=== PATIENT | female | born 1990 | race Caucasian/White ===

== ENCOUNTER 2018-12-05 10:59 | Observation (INO) ==
[2018-12-05 02:05] LABS: Bilirubin,Urine Small (Negative); Blood,Urine Small (Negative); Color,Urine Dark Yellow (Yellow); Glucose,Urine (UA) Normal (Normal); Ketones,Urine 40 mg/dL (Negative); Leukocyte Esterase,Urine Moderate (Negative); Nitrite,Urine Negative (Negative); Protein,Urine 100 mg/dL (Neg-Trace); Specific Gravity,Urine 1.029 (1.010-1.025); Urobilinogen,Urine Normal (Normal)
[2018-12-05 02:07] LABS: Bacteria,Urine Many per hpf (None-Few); Hyaline Casts,Urine Few per lpf (None-Few); Squamous Epithelial Cell,Urine Many per lpf (None-Few); WBC,Urine 50-100 per hpf (0-3)
[2018-12-05 02:10] LABS: Clarity,Urine Hazy (Clear)
[2018-12-05 02:15] LABS: Amphetamine Screen,Urine Negative ng/mL (Cutoff=1000); Barbiturate Screen,Urine Negative ng/mL (Cutoff=200); Benzodiazepines Screen,Urine Negative ng/mL (Cutoff=200); Cannabinoid Screen,Urine Negative ng/mL (Cutoff = 50); Cocaine Screen,Urine Negative ng/mL (Cutoff= 300); Opiate Screen,Urine Negative ng/mL (Cutoff=300); Phencyclidine Screen,Urine Negative ng/mL (Cutoff=25)
[2018-12-05 02:23] LABS: RBC,Urine 0-3 per hpf (0-3); Uric Acid Crystals,Urine Present
[2018-12-05 02:32] LABS: Basophils % 0.1 %; Eosinophils % 0.3 %; Hemoglobin 11.1 g/dL (11.5-15.4); Immature Granulocytes % 0.5 % (0-4); Lymphocytes # 1.2 K/mcL (0.6-4.6); Lymphocytes % 8.2 %; Mean Corpuscular HGB Conc 34.7 g/dL (31.6-35.5); Mean Corpuscular Hemoglobin 30.7 pg (28.0-33.3); Mean Corpuscular Volume 88.4 fL (83.0-100.0); Mean Platelet Volume 11.8 fL (9.4-12.4); Monocytes # 1.5 K/mcL (0.0-1.3); Monocytes % 10.6 %; Neutrophils # 11.5 K/mcL (1.6-8.9); Platelet Count 215 K/mcL (140-400); Red Blood Count 3.62 M/mcL (3.82-4.97); Red Cell Distribution Width 12.1 % (11.5-14.5); Segmented Neutrophils % 80.3 %; White Blood Count 14.3 K/mcL (4.3-11.1)
--- NOTE | 2018-12-05 02:37 | OB/GYN Progress Note ---
Date of Encounter: 12/05/18 Time of Encounter: 02:21 - Assessment and Plan (1) 29 weeks gestation of Current Visit: Yes Status: Acute (2) Nausea and vomiting during Current Visit: Yes Status: Acute LR bolus of 1 L given, then 1L at 250ml/hr hour then continue infusion at 125/hour IV Zofran and IV Phenergan given (3) Pyelonephritis affecting in third trimester Current Visit: Yes Status: Acute Discuss plan of care with Dr. Slade Callahan for observation Rocephin IV every 24 hours Ancef 1 g every 6 hours starting 6 hours after Rocephin Subjective - Subjective Interval history: 29+0 weeks gestation presents to triage with complaints of nausea and vomiting, abdominal and back pain and discomfort. Patient states since Thursday she is had nausea and vomiting, the last time she was able to keep anything down was on Thursday. Complains of dysuria and "feels like she has a UTI", since Thursday or Thursday. Patient reports good movement, denies vaginal bleeding or leaking of fluid. Patient does have fair stamp on hand Antepartum ROS: movement normal, other, no loss of fluid, no vaginal bleeding, no contractions Objective - Vital Signs Vital Signs: Intake and Output 12/04/18 12/04/18 12/05/18 15:59 23:59 07:59 Other: Weight 80.739 kg Patient Weight 12/05/18 23:59 Weight 80.739 kg - Exam FHR: auscultation normal FHR comments: Baseline 155 Abdomen: Present: soft, gravid Cervical dilation: Fingertip/thick/high per RN Comments: Right CVA tenderness - Labs Labs: Abnormal lab results Urine Clarity Hazy (Clear) A 12/05/18 01:55 Ur Specific [place] 1.029 (1.010-1.025) H 12/05/18 01:55 Urine Protein 100 mg/dL (Neg-Trace) H 12/05/18 01:55 Urine Ketones 40 mg/dL (Negative) H 12/05/18 01:55 Urine Blood Small (Negative) H 12/05/18 01:55 Urine Bilirubin Small (Negative) H 12/05/18 01:55 Ur Leukocyte Esterase Moderate (Negative) H 12/05/18 01:55
--- NOTE | 2018-12-05 07:14 | OB/GYN History & Physical ---
Date of Encounter: 12/05/18 Time of Encounter: 07:14 Assessment and Plan (1) 29 weeks gestation of Current visit: Yes Status: Acute (2) Nausea and vomiting during Current visit: Yes Status: Acute Pt has had decrease in emesis since admission Scheduled zofran (3) Pyelonephritis affecting in third trimester Current visit: Yes Status: Acute Discussed with Dr. June Continue current plan with antibiotics. LR@125 Continue antibiotics Continue attempting monitoring. monitoring is been difficult this patient will not hold still will obtain renal US History of Present Illness HPI: Ms. Cramer is a 28 year old female 29+0 weeks gestation presents to triage with complaints of nausea and vomiting, abdominal and back pain and discomfort. Patient states since Thursday she is had nausea and vomiting, the last time she was able to keep anything down was on Thursday after she attempted to eat tacos. Complains of dysuria and "feels like she has a UTI", since Thursday or Thursday. Patient reports good movement, denies vaginal bleeding or leaking of fluid. Patient does have fair stamp on hand, but states that she waited to come for evaluation because she doesn't want to be in the hospital and has OB appointment scheduled for Thursday. Pt. movement normal, no loss of fluid, no vaginal bleeding, no contractions. care with CNM: Complicated by non compliance with care and pt has only had 3 visits. Past Med Surg Social Fam HX - Past Medical History Medical history: no medical history Psychiatric history: anxiety - Past Surgical History Surgical History: no surgical history - Social History Smoking Status: Current every day smoker Alcohol use: none Drug use: none - Family History Mother Family Member Ethnicity: Non- Living Status: Still Living Hx Family Cardiac Disorders: No Hx Family Respiratory Disorders: No Hx Family Cancer: No Hx Family GI Disorders: No Hx Family Genitourinary Disorders: No Hx Family Endocrine Disorder: No Hx Family Musculoskeletal Disorders: No Hx Family Neuromuscular Disorders: No Hx Family Neurologic Disorders: No Hx Family HEENT Disorders: No Hx Family Autoimmune Disorders: No Hx Family Reproductive Disorders: No Hx Family Psychosocial Disorders: No Hx Family Medical Disorders: No Obstetrical History - Pregnancies : 5 Para: 4 Term: 4 : 0 Ab's: 0 Livin Medications and Allergies Acetaminophen [Tylenol] 12/05/18 [History] Allergy/AdvReac Type Severity Reaction Status Date / Time No Known Allergies Allergy Verified 12/05/18 02:01 Exam - Constitutional Constitutional: well developed, well nourished, average body habitus - Neck Neck exam: full ROM - Lungs Respiratory exam: CTAB - Cardiovascular Cardiovascular exam: RRR - Abdomen Abdomen: Present: gravid, diffuse tenderness (Unable to pinpoint site of pain, but complains of abdominal pain) - Extremities Extremities exam: normal capillary refill, normal inspection - Cervix Dilation: 0 (fingertip per RN) Results Result Diagrams: 12/05/18 01:55 Abnormal lab results WBC 14.3 K/mcL (4.3-11.1) H 12/05/18 01:55 RBC 3.62 M/mcL (3.82-4.97) L 12/05/18 01:55 Hgb 11.1 g/dL (11.5-15.4) L 12/05/18 01:55 Hct 32.0 % (35.3-44.9) L 12/05/18 01:55 Neutrophils # 11.5 K/mcL (1.6-8.9) H 12/05/18 01:55 Monocytes # 1.5 K/mcL (0.0-1.3) H 12/05/18 01:55 Urine Clarity Hazy (Clear) A 12/05/18 01:55 Ur Specific [place] 1.029 (1.010-1.025) H 12/05/18 01:55 Urine Protein 100 mg/dL (Neg-Trace) H 12/05/18 01:55 Urine Ketones 40 mg/dL (Negative) H 12/05/18 01:55 Urine Blood Small (Negative) H 12/05/18 01:55 Urine Bilirubin Small (Negative) H 12/05/18 01:55 Ur Leukocyte Esterase Moderate (Negative) H 12/05/18 01:55 Urine Microscopic WBC 50-100 per hpf (0-3) H 12/05/18 01:55 Ur Squamous Epith Cells Many per lpf (None-Few) H 12/05/18 01:55 Urine Bacteria Many per hpf (None-Few) H 12/05/18 01:55 Ur Culture Indicated? YES (NO) A 12/05/18 01:55 All other labs normal. - VTE Reasons for not Prescribing Prophylaxis: Treatment not Indicated - Low risk for VTE
[2018-12-05 09:07] LABS: Alanine Aminotransferase 14 Units/L (7-52); Albumin 2.8 g/dL (3.5-5.7); Alkaline Phosphatase 81 Units/L (34-104); Aspartate Amino Transferase 12 Units/L (13-39); BUN/Creatinine Ratio 11 (6-26); Bilirubin,Total 0.2 mg/dL (0.3-1.0); Blood Urea Nitrogen 7 mg/dL (6-20); Calcium 8.4 mg/dL (8.6-10.3); Carbon Dioxide 24 mEq/L (23-29); Globulin 2.9 g/dL (2.4-3.5); Glucose 109 mg/dL (70-105); Total Protein 5.7 g/dL (6.4-8.9); eGFR For African Americans > 60 (> 60); eGFR For Non-African Americans > 60 (> 60)
[2018-12-05] MEDS: Piperacillin/Tazobactam 3.375 GM in 0.9 % Sodium Chloride Mini Bag 100 ML IVPB SCH ×2 (09:21→15:10)
[2018-12-05 09:48] LABS: Chloride 103 mEq/L (98-107); Osmolality,Calculated 281 (280-300); Potassium 3.4 mEq/L (3.5-5.1); Sodium 136 mEq/L (136-145)
[~2018-12-05 10:59] MED LIST: *HR* Promethazine 25 MG/ML VIAL IVP ONE; *HR* Promethazine 25 MG/ML VIAL ONE; Acetaminophen 325 MG TABLET PO ONE; Morphine Sulfate 2 MG/ML SYRINGE IVP ONE; Ondansetron 4 MG/2 ML VIAL IVP ONE; Ondansetron 4 MG/2 ML VIAL IVP SCH; Ondansetron 4 MG/2 ML VIAL ONE; Ringers Solution, Lactated 1,000 ML IVC ONE; Ringers Solution, Lactated 1,000 ML IVC SCH; Ringers Solution, Lactated 1,000 ML ONE; ceFAZolin 1,000 MG in 0.9 % Sodium Chloride 100 ML IVP SCH; cefTRIAXone 2,000 MG in Water for inj. (sterile) 20 ML IVP SCH
[2018-12-05] MEDS ORDERED: Piperacillin/Tazobactam 3.375 GM in 0.9 % Sodium Chloride Mini Bag 100 ML IVPB SCH (12:00)
[2018-12-05] MEDS ORDERED: Ondansetron ODT 4 MG TAB.RAPDIS SL PRN (12:31)
--- NOTE | 2018-12-05 19:38 | Discharge Summary ---
Date of Encounter: 12/05/18 Time of Encounter: 19:38 - Discharge Diagnosis (1) Pyuria Priority: Primary Status: Acute Comments: Continue PO antibiotics per Dr. Horowitz's recommendation (2) NST (non-stress test) reactive on surveillance Priority: Secondary Status: Acute Comments: FHR 160 bpm moderate variability +15x15 accels no decels noted. No contractions (3) 29 weeks gestation of Priority: Secondary Status: Acute Comments: admitted for observation IV antibiotics (4) Nausea and vomiting during Priority: Secondary Status: Acute Comments: continue Zofran ODT prn Patient has not vomited in over 12 hours and has tolerated and done well with advancing diet - Discharge Medications Prescriptions: New Nitrofurantoin (BID) [Macrobid] 100 mg PO BID 7 Days #14 capsule Ondansetron ODT [Zofran ODT] 4 mg SL Q6HR PRN #12 tab.rapdis PRN Reason: Nausea And Vomiting Continued Acetaminophen [Tylenol] Home Medications: Acetaminophen [Tylenol] 12/05/18 [History] Nitrofurantoin (BID) [Macrobid] 100 mg PO BID 7 Days #14 capsule 12/05/18 [Rx] Ondansetron ODT [Zofran ODT] 4 mg SL Q6HR PRN #12 tab.rapdis 12/05/18 [Rx] Allergies/Adverse Reactions: Allergy/AdvReac Type Severity Reaction Status Date / Time No Known Allergies Allergy Verified 12/05/18 02:01 Data Procedures and tests throughout hospitalization: Laboratory Tests 12/05/18 12/05/18 12/05/18 01:55 01:55 01:55 WBC 14.3 H RBC 3.62 L Hgb 11.1 L Hct 32.0 L MCV 88.4 MCH 30.7 MCHC 34.7 RDW 12.1 Plt Count 215 MPV 11.8 Immature Gran % 0.5 Seg Neutrophils % 80.3 Lymphocytes % 8.2 Monocytes % 10.6 Eosinophils % 0.3 Basophils % 0.1 Neutrophils # 11.5 H Lymphocytes # 1.2 Monocytes # 1.5 H Eosinophils # 0.0 Basophils # 0.0 Sodium Potassium Chloride Carbon Dioxide BUN Creatinine Est GFR ( Amer) Est GFR (Non-Af Amer) BUN/Creatinine Ratio Glucose Calculated Osmolality Calcium Total Bilirubin AST ALT Alkaline Phosphatase Serum Total Protein Albumin Globulin Albumin/Globulin Ratio Urine Color Dark Yellow Urine Clarity Hazy A Urine pH 6.0 Ur Specific [place] 1.029 H Urine Protein 100 H Urine Glucose (UA) Normal Urine Ketones 40 H Urine Blood Small H Urine Nitrite Negative Urine Bilirubin Small H Urine Urobilinogen Normal Ur Leukocyte Esterase Moderate H Urine Microscopic RBC 0-3 Urine Microscopic WBC 50-100 H Ur Squamous Epith Cells Many H Uric Acid Crystals Present Urine Bacteria Many H Hyaline Casts Few Ur Culture Indicated? YES A Urine Opiates Screen Negative Ur Buprenorphine Scrn Negative Ur Barbiturates Screen Negative Ur Phencyclidine Scrn Negative Ur Amphetamines Screen Negative U Benzodiazepines Scrn Negative Urine Cocaine Screen Negative U Marijuana (THC) Screen Negative Ur Drug Screen Interp See Below 12/05/18 08:35 WBC RBC Hgb Hct MCV MCH MCHC RDW Plt Count MPV Immature Gran % Seg Neutrophils % Lymphocytes % Monocytes % Eosinophils % Basophils % Neutrophils # Lymphocytes # Monocytes # Eosinophils # Basophils # Sodium 136 Potassium 3.4 L Chloride 103 Carbon Dioxide 24 BUN 7 Creatinine 0.62 Est GFR ( Amer) > 60 Est GFR (Non-Af Amer) > 60 BUN/Creatinine Ratio 11 Glucose 109 H Calculated Osmolality 281 Calcium 8.4 L Total Bilirubin 0.2 L AST 12 L ALT 14 Alkaline Phosphatase 81 Serum Total Protein 5.7 L Albumin 2.8 L Globulin 2.9 Albumin/Globulin Ratio 1.0 L Urine Color Urine Clarity Urine pH Ur Specific [place] Urine Protein Urine Glucose (UA) Urine Ketones Urine Blood Urine Nitrite Urine Bilirubin Urine Urobilinogen Ur Leukocyte Esterase Urine Microscopic RBC Urine Microscopic WBC Ur Squamous Epith Cells Uric Acid Crystals Urine Bacteria Hyaline Casts Ur Culture Indicated? Urine Opiates Screen Ur Buprenorphine Scrn Ur Barbiturates Screen Ur Phencyclidine Scrn Ur Amphetamines Screen U Benzodiazepines Scrn Urine Cocaine Screen U Marijuana (THC) Screen Ur Drug Screen Interp Labs on day of discharge: Labs from last 24 hours 12/05/18 12/05/18 12/05/18 08:35 01:55 01:55 WBC 14.3 H RBC 3.62 L Hgb 11.1 L Hct 32.0 L MCV 88.4 MCH 30.7 MCHC 34.7 RDW 12.1 Plt Count 215 MPV 11.8 Immature Gran % 0.5 Seg Neutrophils % 80.3 Lymphocytes % 8.2 Monocytes % 10.6 Eosinophils % 0.3 Basophils % 0.1 Neutrophils # 11.5 H Lymphocytes # 1.2 Monocytes # 1.5 H Eosinophils # 0.0 Basophils # 0.0 Sodium 136 Potassium 3.4 L Chloride 103 Carbon Dioxide 24 BUN 7 Creatinine 0.62 Est GFR ( Amer) > 60 Est GFR (Non-Af Amer) > 60 BUN/Creatinine Ratio 11 Glucose 109 H Calculated Osmolality 281 Calcium 8.4 L Total Bilirubin 0.2 L AST 12 L ALT 14 Alkaline Phosphatase 81 Serum Total Protein 5.7 L Albumin 2.8 L Globulin 2.9 Albumin/Globulin Ratio 1.0 L Urine Color Dark Yellow Urine Clarity Hazy A Urine pH 6.0 Ur Specific [place] 1.029 H Urine Protein 100 H Urine Glucose (UA) Normal Urine Ketones 40 H Urine Blood Small H Urine Nitrite Negative Urine Bilirubin Small H Urine Urobilinogen Normal Ur Leukocyte Esterase Moderate H Urine Microscopic RBC 0-3 Urine Microscopic WBC 50-100 H Ur Squamous Epith Cells Many H Uric Acid Crystals Present Urine Bacteria Many H Hyaline Casts Few Ur Culture Indicated? YES A Urine Opiates Screen Ur Buprenorphine Scrn Ur Barbiturates Screen Ur Phencyclidine Scrn Ur Amphetamines Screen U Benzodiazepines Scrn Urine Cocaine Screen U Marijuana (THC) Screen Ur Drug Screen Interp 12/05/18 01:55 WBC RBC Hgb Hct MCV MCH MCHC RDW Plt Count MPV Immature Gran % Seg Neutrophils % Lymphocytes % Monocytes % Eosinophils % Basophils % Neutrophils # Lymphocytes # Monocytes # Eosinophils # Basophils # Sodium Potassium Chloride Carbon Dioxide BUN Creatinine Est GFR ( Amer) Est GFR (Non-Af Amer) BUN/Creatinine Ratio Glucose Calculated Osmolality Calcium Total Bilirubin AST ALT Alkaline Phosphatase Serum Total Protein Albumin Globulin Albumin/Globulin Ratio Urine Color Urine Clarity Urine pH Ur Specific [place] Urine Protein Urine Glucose (UA) Urine Ketones Urine Blood Urine Nitrite Urine Bilirubin Urine Urobilinogen Ur Leukocyte Esterase Urine Microscopic RBC Urine Microscopic WBC Ur Squamous Epith Cells Uric Acid Crystals Urine Bacteria Hyaline Casts Ur Culture Indicated? Urine Opiates Screen Negative Ur Buprenorphine Scrn Negative Ur Barbiturates Screen Negative Ur Phencyclidine Scrn Negative Ur Amphetamines Screen Negative U Benzodiazepines Scrn Negative Urine Cocaine Screen Negative U Marijuana (THC) Screen Negative Ur Drug Screen Interp See Below Preliminary micro results at discharge 12/05/18 01:55 Urine Culture - Preliminary Urine,Clean Catch Culture is incubating. - Impressions ITS Impressions Retroperitoneum Ultrasound 12/05/18 07:23 IMPRESSION: 1. Normal sonographic appearance of the kidneys. No evidence of obstructive uropathy. D/ / 12/05/2018 11:32:19 Thompson Mukherjee MD / bo Interpreting Provider: Thompson Mukherjee MD Date of admission: 12/05/18 01:10 Discharging clinician: Aubrie Sandhu Anticipated date of discharge: 12/05/18 - Patient Status Disposition: Home, Self-Care Condition: Good Functional capacity at discharge: independent ambulation - Discharge Instructions Follow Up With: Nicci Ji CNM [Advanced Practice Nurse] - - Diet and Activity Activity: increase activity as tolerated Diet: advance to your usual diet Hospital Course [employer] Hospital course: Patient was treated with IV antibiotics and antiemetics. Patient had a negative ultrasound for kidney stones and hydronephrosis. Patient reports good movement. Patient reports feeling much better. Patient reports pain a 1 out of 10 and is comfortable with discharge plan. Time Attestation: Total time spent providing and/or coordinating discharge services: Time Spent: Less than 30 minutes Exam - Constitutional General appearance IM: A&O X 3, pleasant, answers questions appropriately - Respiratory Respiratory exam: Present: CTAB - Cardiovascular Cardiovascular exam IM: Present: RRR, +S1, +S2 - GI/Abdominal GI/Abdominal exam IM: normal bowel sounds, soft - Extremities Exam Extremities exam IM: Present: full ROM, normal capillary refill, normal inspection - Neurological Exam Neurological exam: alert, oriented X3, reflexes normal - Other Additional findings: FHR 160 bpm moderate variability +15x15 accels no decels noted. No contractions noted. Cat. 1 tracing - VTE Reasons for not Prescribing Prophylaxis: Treatment not Indicated - Low risk for VTE
== END 2018-12-05 19:50 | disposition home or self-care (01) ==
LOC: 1NENULAB
PROVIDERS: ADMIT Advanced Practice Midwife; ATTEND Advanced Practice Midwife

== ENCOUNTER 2018-12-07 02:45 | Observation (INO) ==
[2018-12-07 03:14] LABS: Bilirubin,Urine Negative (Negative); Blood,Urine Trace (Negative); Clarity,Urine Cloudy (Clear); Color,Urine Dark Yellow (Yellow); Glucose,Urine (UA) Normal (Normal); Ketones,Urine >=160 mg/dL (Negative); Leukocyte Esterase,Urine Large (Negative); Nitrite,Urine Negative (Negative); PH,Urine 6.5 pH Units (5.0-8.0); Protein,Urine 30 mg/dL (Neg-Trace); Specific Gravity,Urine 1.022 (1.010-1.025); Urobilinogen,Urine Normal (Normal)
[2018-12-07 03:17] LABS: Bacteria,Urine None Seen per hpf (None-Few); Hyaline Casts,Urine Moderate per lpf (None-Few); Squamous Epithelial Cell,Urine Many per lpf (None-Few); WBC,Urine 15-30 per hpf (0-3)
[2018-12-07] MEDS ORDERED: *HR* Promethazine 25 MG/ML VIAL IVP PRN (03:41)
[2018-12-07] MEDS ORDERED: Ringers Solution, Lactated 1,000 ML IVC ONE (03:41)
[2018-12-07] MEDS ORDERED: Acetaminophen 325 MG TABLET PO ONE (03:41)
[2018-12-07] MEDS ORDERED: Ringers Solution, Lactated 1,000 ML IVC SCH ×2 (03:45→11:12)
[2018-12-07] MEDS: Piperacillin/Tazobactam 3.375 GM in 0.9 % Sodium Chloride Mini Bag 100 ML IVPB SCH ×4 (04:15→22:07)
[2018-12-07 04:31] LABS: Basophils % 0.2 %; Eosinophils # 0.2 K/mcL (0.0-0.6); Eosinophils % 1.3 %; Hematocrit 32.5 % (35.3-44.9); Hemoglobin 10.9 g/dL (11.5-15.4); Immature Granulocytes % 0.6 % (0-4); Lymphocytes # 1.7 K/mcL (0.6-4.6); Lymphocytes % 14.6 %; Mean Corpuscular HGB Conc 33.5 g/dL (31.6-35.5); Mean Corpuscular Hemoglobin 30.6 pg (28.0-33.3); Mean Corpuscular Volume 91.3 fL (83.0-100.0); Mean Platelet Volume 10.5 fL (9.4-12.4); Monocytes # 0.9 K/mcL (0.0-1.3); Monocytes % 7.9 %; Neutrophils # 8.6 K/mcL (1.6-8.9); Platelet Count 231 K/mcL (140-400); Red Blood Count 3.56 M/mcL (3.82-4.97); Red Cell Distribution Width 12.3 % (11.5-14.5); Segmented Neutrophils % 75.4 %; White Blood Count 11.3 K/mcL (4.3-11.1)
[2018-12-07] MEDS ORDERED: Morphine Sulfate 2 MG/ML SYRINGE IVP ONE (07:08)
[2018-12-07] MEDS ORDERED: Ondansetron 4 MG/2 ML VIAL ONE (07:20)
[2018-12-07] MEDS: Ondansetron 4 MG/2 ML VIAL IVP SCH ×2 (07:27→16:16)
[2018-12-07 09:11] LABS: Amphetamine Screen,Urine Negative ng/mL (Cutoff=1000); Barbiturate Screen,Urine Negative ng/mL (Cutoff=200); Benzodiazepines Screen,Urine Negative ng/mL (Cutoff=200); Cannabinoid Screen,Urine Negative ng/mL (Cutoff = 50); Cocaine Screen,Urine Negative ng/mL (Cutoff= 300); Opiate Screen,Urine Negative ng/mL (Cutoff=300); Phencyclidine Screen,Urine Negative ng/mL (Cutoff=25)
[2018-12-07] MEDS: Famotidine 20 MG/2 ML VIAL IVP SCH (21:40)
[2018-12-07 21:50] LABS: Amylase 48 Units/L (29-103); Lipase 42 Units/L (11-82)
[2018-12-08] MEDS: Famotidine 20 MG/2 ML VIAL IVP SCH (10:26)
[2018-12-08] MEDS ORDERED: Piperacillin/Tazobactam 3.375 GM VIAL ONE (10:30)
[2018-12-08] MEDS ORDERED: Piperacillin/Tazobactam 3.375 GM in 0.9 % Sodium Chloride Mini Bag 100 ML IVPB SCH (10:45)
[2018-12-08] MEDS: Ondansetron 4 MG/2 ML VIAL IVP SCH ×2 (11:37→17:39)
[2018-12-08] MEDS ORDERED: Ringers Solution, Lactated 1,000 ML IVC ONE (14:06)
[2018-12-08 21:34] VITALS: BP 105/66
== END 2018-12-08 20:10 | disposition left against medical advice (07) ==
LOC: 1NENULAB → 1NENUOBS 22:19
PROVIDERS: ADMIT Registered Nurse; ATTEND Registered Nurse

== ENCOUNTER 2019-02-13 02:23 | Inpatient (IN) ==
[2019-02-13] MEDS ORDERED: FLU Vac QV 19-20 (6Month+)/PF 0.5 ML SYRINGE IM ONE (02:27)
[2019-02-13] MEDS ORDERED: *HR* Nalbuphine 10 MG/ML AMPUL IVP PRN (02:36)
[2019-02-13] MEDS ORDERED: Famotidine 20 MG/2 ML VIAL IVP PRN (02:36)
[2019-02-13] MEDS ORDERED: Ondansetron 4 MG/2 ML VIAL IVP PRN (02:36)
[2019-02-13] MEDS ORDERED: Metoclopramide 10 MG/2 ML VIAL IVP PRN (02:36)
[2019-02-13] MEDS ORDERED: Naloxone 0.4 MG/ML INJ IVP PRN (02:36)
[2019-02-13] MEDS ORDERED: Lidocaine 1% 20 ML MDV INFILT PRN (02:36)
[2019-02-13] MEDS ORDERED: 0.9 % Sodium Chloride 1,000 ML IVC SCH ×2 (02:45→17:00)
[2019-02-13 03:08] LABS: Basophils % 0.3 %; Eosinophils # 0.1 K/mcL (0.0-0.6); Eosinophils % 1.3 %; Hematocrit 31.3 % (35.3-44.9); Hemoglobin 10.6 g/dL (11.5-15.4); Immature Granulocytes % 0.3 % (0-4); Lymphocytes # 2.7 K/mcL (0.6-4.6); Lymphocytes % 27.6 %; Mean Corpuscular HGB Conc 33.9 g/dL (31.6-35.5); Mean Corpuscular Hemoglobin 30.5 pg (28.0-33.3); Mean Corpuscular Volume 90.2 fL (83.0-100.0); Mean Platelet Volume 12.8 fL (9.4-12.4); Monocytes # 0.7 K/mcL (0.0-1.3); Monocytes % 6.7 %; Neutrophils # 6.3 K/mcL (1.6-8.9); Platelet Count 191 K/mcL (140-400); Red Blood Count 3.47 M/mcL (3.82-4.97); Red Cell Distribution Width 14.2 % (11.5-14.5); Segmented Neutrophils % 63.8 %; White Blood Count 9.9 K/mcL (4.3-11.1)
[2019-02-13 03:12] LABS: Amphetamine Screen,Urine Negative ng/mL (Cutoff=1000); Barbiturate Screen,Urine Negative ng/mL (Cutoff=200); Benzodiazepines Screen,Urine Negative ng/mL (Cutoff=200); Cannabinoid Screen,Urine Negative ng/mL (Cutoff = 50); Cocaine Screen,Urine Negative ng/mL (Cutoff= 300); Opiate Screen,Urine Negative ng/mL (Cutoff=300); Phencyclidine Screen,Urine Negative ng/mL (Cutoff=25)
[2019-02-13] MEDS ORDERED: Ringers Solution, Lactated 1,000 ML ONE (03:18)
[2019-02-13] MEDS ORDERED: Oxytocin 20 units/ LR 1000 mL 20 UNIT/1,000 ML BAG IVC ONE (04:18)
[2019-02-13] MEDS ORDERED: Ibuprofen 800 MG TABLET PO ONE (05:02)
--- NOTE | 2019-02-13 05:23 | OB/GYN History & Physical ---
Date of Encounter: 02/13/19 Time of Encounter: 05:16 Assessment and Plan (1) Tobacco use Current visit: Yes Status: Acute (2) Rh negative state in antepartum period Current visit: Yes Status: Acute (3) Spontaneous onset of labor Current visit: Yes Status: Acute Admit for expectant managment. (4) 39 weeks gestation of Current visit: Yes Status: Acute (5) Cholelithiasis affecting in third trimester, antepartum Current visit: No Status: Acute History of Present Illness Chief complaint: labor HPI: Ms. Delacruz is a 29 year old female presenting at 39 weeks with c/o labor. She reports that she started having irregular contractions and pelvic pressure at 1pm yesterday. She denies any other complaints at this time. This is complicated by cholelithiasis which has caused significant weight loss. This is also complicated by limited care and tobacco use. A negative Rubella immune Serologies negative GBS negative Past Med Surg Social Fam HX - Past Medical History Medical history: no medical history Psychiatric history: anxiety, depression - Past Surgical History Surgical History: no surgical history - Social History Smoking Status: Current every day smoker Packs per day: 01/2ppd Smokeless Tobacco Status: No Alcohol use: none Drug use: none - Family History Mother Family Member Ethnicity: Non- Living Status: Still Living Hx Family Cardiac Disorders: No Hx Family Respiratory Disorders: No Hx Family Cancer: No Hx Family GI Disorders: No Hx Family Endocrine Disorder: No Hx Family Neuromuscular Disorders: No Hx Family Neurologic Disorders: No Hx Family HEENT Disorders: No Hx Family Autoimmune Disorders: No Obstetrical History - Pregnancies : 5 Para: 4 Term: 4 Livin Medications and Allergies Allergy/AdvReac Type Severity Reaction Status Date / Time No Known Allergies Allergy Verified 12/07/18 02:52 Review of System OB All systems PM: reviewed and no additional remarkable complaints except as stated Exam - Constitutional Constitutional: well developed, average body habitus - HEENT HEENT: Mucus Membranes Moist - Lungs Respiratory exam: CTAB - Cardiovascular Cardiovascular exam: RRR - Abdomen Abdomen: Present: non tender - Extremities Extremities exam: normal inspection - Cervix Dilation: 10 Effacement: 100 Station: +1 - Anus/Rectum Anus/Rectum: Present: normal perianal skin Results Result Diagrams: 02/13/19 02:45 Abnormal lab results RBC 3.47 M/mcL (3.82-4.97) L 02/13/19 02:45 Hgb 10.6 g/dL (11.5-15.4) L 02/13/19 02:45 Hct 31.3 % (35.3-44.9) L 02/13/19 02:45 MPV 12.8 fL (9.4-12.4) H 02/13/19 02:45 All other labs normal. - VTE Reasons for not Prescribing Prophylaxis: Treatment not Indicated - Low risk for VTE
--- NOTE | 2019-02-13 05:31 | OB/GYN Procedure Note ---
Delivery - Delivery Date: 02/13/19 Provider: Toma Mondragon Intrapartum events: none Delivery induction: none Delivery augmentation: rupture of membranes (at complete dilation) Delivery monitor: external FHT, external uterine Anesthesia: none Quantitated Blood Loss: 100 - Infant (s) A Infant Delivery Date: 02/13/19 Delivery Time: 04:49 Presentation: vertex Position: OA Route of delivery: Gender: Male Viability: Viable Pounds: 6 Ounces: 9 Weight Gram: 2.985 kg at 1 minute: 9 at 5 mins: 9 Shoulder Dystocia: not encountered Specimens collected: cord blood Placenta: spontaneous Cord: nuchal cord, 3 umbilical vessels, delivered through nuchal - Repair Episiotomy: none Laceration Description: None - Complications Delivery complications: none Delivery comments: Pt presented in active labor and progressed rapidly to for viable male "Guillermo" weighing [id number] with apgars 9 at one minute and 9 at five minutes.After a 60 second delay the cord was clamped and cut and the placenta delivered spontaneous and intact. EBL 100ml. No lacerations. Mother and baby stable in kangaroo care following . - Disposition Mom disposition: stable in LDR [place] disposition: stable in LDR
[2019-02-13] MEDS ORDERED: *HR* Oxytocin 10 UNIT/ML VIAL IM ONE (07:43)
[2019-02-13] MEDS ORDERED: Rho Immune Globulin 1,500 UNIT SYRINGE IM PRN (08:19)
[2019-02-13] MEDS ORDERED: Ibuprofen 800 MG TABLET PO PRN (08:19)
[2019-02-13] MEDS ORDERED: Oxytocin 20 units/ LR 1000 mL 20 UNIT/1,000 ML BAG IVC SCH (08:19)
[2019-02-13] MEDS ORDERED: Acetaminophen 325 MG TABLET PO PRN (08:19)
[2019-02-13] MEDS ORDERED: Lanolin 28 GM TUBE TP PRN (08:19)
[2019-02-13] MEDS ORDERED: Benzocaine/Menthol 56 GM AEROSOL SPRAY TP PRN (08:19)
[2019-02-13] MEDS ORDERED: Prenatal Vit/FA 1 EACH TABLET PO SCH (09:00)
[2019-02-13] MEDS ORDERED: Lanolin 7 G OINT...G. TP PRN (10:15)
--- NOTE | 2019-02-13 12:05 | AcuteCare Surgery Consult Note ---
Date of Encounter: 02/13/19 Time of Encounter: 12:00 Assessment and Plan (1) Symptomatic cholelithiasis Current Visit: Yes Status: Acute Pt diagnosis of symptomatic cholelithiasis is discussed. Laparoscopic Cholecystectomy is recommended. Procedure for the surgery, risks and benefits are discussed in detail. Possible known complications for Laparoscopic Cholecystectomy are bleeding, infection, bile duct injury, bile leak, small intestine or stomach injury, stroke, DVT/PE, TN or . Pt understands these risks, which in this case are low. Pt wishes to proceed with surgery as soon as possible. Informed consent is obtained. Pt condition is stable. Surgery is scheduled. (2) Spontaneous vaginal delivery Current Visit: Yes Status: Acute History of Present Illness Consult date: 02/13/19 Reason for consult: gallstones Requesting physician: Marissa Alvarez History of present illness: This 29 y/o pt presents to [facility] ED in labor. She had in am. She has known gallstones and continuous intractable nausea and vomiting since her second trimester. Pt reports pain is sRUQ. Pt reports the pain is progressively worsening over the months. Pt reports pain radiates to back and up to right shoulder. Pt reports associated nausea and vomiting. Pt denies CP or SOB. Denies fever. Past Med Surg Social Fam HX - Past Medical History Medical history: no medical history Psychiatric history: anxiety, depression - Past Surgical History Surgical History: no surgical history - Social History Smoking Status: Current every day smoker Packs per day: 01/2ppd Smokeless Tobacco Status: No Alcohol use: none Drug use: none - Family History Mother Family Member Ethnicity: Non- Living Status: Still Living Hx Family Cardiac Disorders: No Hx Family Respiratory Disorders: No Hx Family Cancer: No Hx Family GI Disorders: No Hx Family Endocrine Disorder: No Hx Family Neuromuscular Disorders: No Hx Family Neurologic Disorders: No Hx Family HEENT Disorders: No Hx Family Autoimmune Disorders: No Medications and Allergies Allergy/AdvReac Type Severity Reaction Status Date / Time No Known Allergies Allergy Verified 12/07/18 02:52 Review of Systems All systems PM: The remainder of the systems were reviewed and are negative - Constitutional as per HPI, anorexia, no chills, no fatigue, no fever(s), no weakness - EENT Nose, mouth and throat: sinus pain, sinus pressure, sore throat, no dizziness, no dysphagia, no nasal congestion, no nasal discharge - Cardiovascular no chest pain, no diaphoresis, no dyspnea, no edema - Respiratory no cough, no dyspnea, no wheezing - Gastrointestinal abdominal pain, bloating, cramping, nausea, vomiting, no constipation, no diarrhea - Genitourinary Genitourinary: no dysuria, no flank pain, no urinary frequency Menstruation: other (PPD#0) - Musculoskeletal no back pain, no joint swelling, no limited range of motion, no neck pain - Integumentary no dry skin, no pruritus, no rash, no wounds, no jaundice - Neurological no confusion, no dizziness, no focal weakness, no weakness - Psychiatric no anxiety, no depression - Endocrine no fatigue - Hematologic/Lymphatic no easy bleeding, no easy bruising General Surgery Exam Initial Vital Signs Resp 02/13/19 07:30 - General physical appearance well nourished, no distress, moderate pain. negative: jaundice - Eyes PERRL, normal ocular movement. negative: icteric - ENT normal mucosa, no congestion. negative: nasal discharge - Neck no masses, trachea midline, no lymphadectomy, no venous distension - Respiratory normal expansion, normal respiratory effort, clear to auscultation - Cardiovascular Cardiovascular exam: Present: RRR. Absent: JVD - Abdomen Abdomen general surgery: Present: bowel sounds present, soft, distended (uterus in above pubes but, far belong umbilicus), tender. Absent: guarding, rebound Abdominal Tenderness: Present: RUQ - Genitourinary Present: other ( today) - Integumentary Integumentary general surgery: Present: warm and dry - Neurologic Present: CN 2-12 grossly intact, normal coordination - Musculoskeletal Present: normal posture - Psychiatric Psychiatric general surgery: Present: A&Ox3, appropriate Exam Initial Vital Signs Resp 02/13/19 07:30 Results - Labs 02/13/19 11:48 02/13/19 11:48 Abnormal lab results RBC 3.47 M/mcL (3.82-4.97) L 02/13/19 02:45 Hgb 10.6 g/dL (11.5-15.4) L 02/13/19 02:45 Hct 31.3 % (35.3-44.9) L 02/13/19 02:45 MPV 12.8 fL (9.4-12.4) H 02/13/19 02:45 All other labs normal. - Imaging US - abdomen: image reviewed (gall stones)
[2019-02-13 12:21] LABS: Basophils # 0.1 K/mcL (0.0-0.2); Basophils % 0.5 %; Eosinophils # 0.2 K/mcL (0.0-0.6); Eosinophils % 1.4 %; Hematocrit 29.8 % (35.3-44.9); Hemoglobin 10.1 g/dL (11.5-15.4); Immature Granulocytes % 0.4 % (0-4); Lymphocytes # 2.4 K/mcL (0.6-4.6); Lymphocytes % 21.7 %; Mean Corpuscular HGB Conc 33.9 g/dL (31.6-35.5); Mean Corpuscular Volume 91.4 fL (83.0-100.0); Mean Platelet Volume 12.8 fL (9.4-12.4); Monocytes # 0.7 K/mcL (0.0-1.3); Monocytes % 6.3 %; Neutrophils # 7.6 K/mcL (1.6-8.9); Platelet Count 181 K/mcL (140-400); Red Blood Count 3.26 M/mcL (3.82-4.97); Red Cell Distribution Width 14.2 % (11.5-14.5); Segmented Neutrophils % 69.7 %; White Blood Count 10.8 K/mcL (4.3-11.1)
[2019-02-13 12:42] LABS: Alanine Aminotransferase 28 Units/L (7-52); Albumin 2.9 g/dL (3.5-5.7); Alkaline Phosphatase 141 Units/L (34-104); Aspartate Amino Transferase 20 Units/L (13-39); BUN/Creatinine Ratio 17 (6-26); Bilirubin,Total 0.3 mg/dL (0.3-1.0); Blood Urea Nitrogen 12 mg/dL (6-20); Calcium 9.3 mg/dL (8.6-10.3); Carbon Dioxide 26 mEq/L (23-29); Chloride 106 mEq/L (98-107); Globulin 2.9 g/dL (2.4-3.5); Glucose 92 mg/dL (70-105); Osmolality,Calculated 277 (280-300); Potassium 3.2 mEq/L (3.5-5.1); Sodium 134 mEq/L (136-145); Total Protein 5.8 g/dL (6.4-8.9); eGFR For African Americans > 60 (> 60); eGFR For Non-African Americans > 60 (> 60)
--- NOTE | 2019-02-13 20:50 | Anesthesia Evaluation PreOp ---
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: Other (Anxiety/depression) Other Medical History: Denies Any Significant HX Anesthesia History: No Prior Anesthetic Complications, Past Anesthesia (No prior GA) Alcohol Use: none Drug use: none Medications and Allergies Allergy/AdvReac Type Severity Reaction Status Date / Time No Known Allergies Allergy Verified 12/07/18 02:52 - Meds/Allergy Pre-op Review Medications Reviewed: Yes Allergies Reviewed: Yes Beta Blockers on Current Med List: No Anesthesia Results - Labs 02/13/19 11:48 02/13/19 11:48 Impressions Gallbladder Ultrasound 02/13/19 13:35 IMPRESSION: Large calculus in the neck of the gallbladder without sonographic findings of acute cholecystitis. Similar findings previously present. D/ / Arcadio Nunez MD / Arcadio Nunez MD Interpreting Provider: Arcadio Nunez MD Laboratory Results Anesthesia Exam Vital Signs Temp Pulse Pulse Resp BP Pulse Ox 02/13/19 16:13 97.8 F 60 16 109/80 02/13/19 09:30 97.5 F L 62 14 120/73 99 02/13/19 08:30 97.9 F 58 58 16 106/60 100 02/13/19 07:30 16 Intake and Output 02/13/19 02/13/19 02/13/19 07:59 15:59 23:59 Other: Weight 77.564 kg Patient Weight 02/13/19 23:59 Weight 77.564 kg Height: 5'4" Weight: 171# BMI =29.4 NPO (# of Hours): [place] Pain Scale Used: Numeric (1 - 10) - HEENT Pupil (Motor): Pupils equal Oral Opening: Greater than 3 - OVEN ROASTER LOC: Oriented OVEN ROASTER Motor: Normal RUE, Normal LUE, Normal RLE, Normal LLE, Normal Face OVEN ROASTER Sensory: Normal: RUE, LUE, RLE, LLE, Face - Cardiac Rhythm: Regular Murmur: None - Pulmonary Breath Sounds: bilateral Clear Respiratory Effort: Symmetrical Anesthesia Assess/Plan ASA Score: 2 (Smoker) Level of consciousness: Cooperative, Oriented, Tranquil Anesthetic Plan: General Monitoring Plan: Standard Monitors Recovery Plan: PACU Anes Supervising Prov Stmt: Pt seen/evaluated, R&B discussed, questions answered and consent obtained. Geneva Lees MD
[2019-02-14] MEDS ORDERED: *HR* Succinylcholine 200 MG/10 ML VIAL IVP ONE (01:24)
[2019-02-14] MEDS ORDERED: *HR* FentaNYL (PF) 100 MCG/2 ML VIAL ONE (01:24)
[2019-02-14] MEDS ORDERED: *HR* Rocuronium Bromide 50 MG/5 ML VIAL ONE (01:24)
[2019-02-14] MEDS ORDERED: Lidocaine -MPF 2% 2 ML VIAL ONE (01:24)
[2019-02-14] MEDS ORDERED: *HR* Propofol 200 MG/20 ML VIAL IVP ONE (01:25)
[2019-02-14] MEDS ORDERED: *HR* Midazolam HCl 2 MG/2 ML VIAL ONE ×2 (01:25→03:31)
[2019-02-14] MEDS ORDERED: Lidocaine HCL 4 ML Topical Solution (Laryng-O-Jet Kit Sterile Pak) TP ONE (01:36)
[2019-02-14] MEDS ORDERED: Acetaminophen IV 1,000 MG/100 ML INFUS..BTL ONE (02:09)
[2019-02-14] MEDS ORDERED: Famotidine 20 MG/2 ML VIAL ONE (02:09)
[2019-02-14] MEDS ORDERED: *HR* PHENYLEPHRINE 1,000 MCG/10 ML SYRINGE IVP ONE (02:47)
[2019-02-14] MEDS ORDERED: Dexamethasone 4 MG/ML VIAL ONE (02:50)
[2019-02-14] MEDS ORDERED: Ondansetron 4 MG/2 ML VIAL ONE (02:50)
[2019-02-14] MEDS ORDERED: Neostigmine Methylsulfate 3 MG/3 ML SYRINGE ONE (03:05)
[2019-02-14] MEDS ORDERED: Ketorolac 30 MG/ML VIAL ONE (03:05)
--- NOTE | 2019-02-14 03:13 | Operative Note ---
Date of procedure: 02/14/19 Pre-op diagnosis: symptomatic cholelithiasis Post-op diagnosis: same (with hydrops gallbladder) Procedure: Laparoscopic cholecystectomy Complications: none Anesthesia: GETA Surgeon: Florecita Kumar Was there an inventory control assistant present: No Estimated blood loss (cc): 15 Specimen: gallbladder Condition: stable Disposition: PACU Procedure in Detail: This 29 year-old, PPD#1 female was taken to the operating room and placed in the supine position. The anterior abdominal wall is prepped and draped in the usual sterile fashion. A 1-2 cm curvilinear incision is made in the infraumbilical area and subcutaneous tissue was dissected down to anterior rectus fascia. Fascia is grasped with a Zoe clamp, stay sutures were placed in the fascia is divided. Posterior rectus fascia and peritoneum were elevated and divided in the same manner. A Renetta port is inserted. Under direct visualization after the injection of 0.5% Marcaine the x3 5 mm ports are inserted in the right subcostal space under direct visualization. Exploration of the intraabdominal cavity reveals an abnormal gallbladder. The patient is placed in reverse Trendelenburg position and rotated to the left. The gallbladder is grasped and retracted in cephalad direction. It is also grasped and retracted in the lateral direction. The cystic duct was carefully identified circumferentially dissected doubly clipped and divided between clips. The cystic artery is carefully identified and circumferentially dissected and divided between clips. The gallbladder is dissected off the liver bed using electrocautery. Hemostasis was perfected using electrocautery. The gallbladder is removed from the intra- abdominal cavity using an Endo Catch bag. Copious irrigation is carried out in the intra-abdominal cavity, Subramanian's pouch and the gallbladder fossa. The pneumoperitoneum was allowed to escape under direct visualization. The ports were removed also under direct visualization. The fascia at the infraumbilical incision is closed using 0 Vicryl sutures. All skin incisions are closed using 4-0 Monocryl subcuticular stitches. Steri-Strips are placed. Sterile dressing is placed. Patient tolerated procedure well was taken to the PACU in good condition.
[2019-02-14] MEDS ORDERED: *HR* OxyCODONE Immed Rel 5 MG TABLET ONE (03:32)
[2019-02-14] MEDS ORDERED: Ringers Solution, Lactated 1,000 ML ONE (03:44)
[2019-02-14] MEDS ORDERED: *HR* Labetalol 20 MG/4 ML SYRINGE IVP PRN (03:56)
[2019-02-14] MEDS ORDERED: *HR* HYDROmorphone 2 MG TABLET PO PRN (03:56)
[2019-02-14] MEDS ORDERED: *HR* Promethazine 25 MG/ML VIAL IVP PRN (03:56)
[2019-02-14] MEDS ORDERED: Pregabalin 75 MG CAPSULE PO ONE ×2 (03:58→04:15)
--- NOTE | 2019-02-14 03:59 | Anesthesia Evaluation Post Op ---
Date of Encounter: 02/14/19 Time of Encounter: 03:59 - Vital Signs Vital Signs: Vital Signs/O2 Sat/Glucose, Most Current Temp Pulse Resp BP Pulse Ox 02/14/19 03:51 98.0 F 75 12 138/98 98 02/14/19 03:41 64 14 119/78 98 02/14/19 03:31 67 14 133/82 96 02/14/19 03:21 98.5 F 63 18 119/85 96 02/14/19 01:55 98.6 F 70 14 102/62 97 - Lungs Lungs: Clear Ascult./Percussion - Airway Airway: Non-obstructed - Cardiovascular Regular Rate, Baseline Rhythm - Mental Status Mental Status: Alert & Oriented, Answers Appropriately - Pain Pain Scale: 6 Pain Scale used: Numeric (1 - 10) - Nausea Vomiting Nausea Vomiting: Not Present - Hydration Hydration: Ice chips, Has not voided - Discharge PostOp Status: Transfer Patient to floor Anes Supervising Prov Stmt: Pt seen/evaluated, R&B Discussed, questions answered and consent obtained. Geneva Lees MD
[2019-02-14] MEDS: *HR* HYDROmorphone (PF) 1 MG/ML SYRINGE IVP PRN ×2 (04:11→04:21)
[2019-02-14] MEDS ORDERED: Lanolin 7 G OINT...G. TP PRN (04:45)
[2019-02-14] MEDS ORDERED: Rho Immune Globulin 1,500 UNIT SYRINGE IM PRN (04:45)
[2019-02-14] MEDS ORDERED: Benzocaine/Menthol 56 GM AEROSOL SPRAY TP PRN (04:45)
[2019-02-14] MEDS ORDERED: *HR* OxyCODONE/APAP 5/325 TABLET PO PRN (04:45)
[2019-02-14] MEDS ORDERED: Acetaminophen 325 MG TABLET PO PRN (04:45)
[2019-02-14] MEDS ORDERED: Ibuprofen 800 MG TABLET PO PRN (04:45)
[2019-02-14] MEDS ORDERED: 0.9 % Sodium Chloride 1,000 ML IVC SCH (04:45)
[2019-02-14 07:01] LABS: Basophils % 0.4 %; Eosinophils # 0.1 K/mcL (0.0-0.6); Eosinophils % 0.7 %; Hematocrit 29.5 % (35.3-44.9); Hemoglobin 9.8 g/dL (11.5-15.4); Immature Granulocytes % 0.4 % (0-4); Lymphocytes # 1.3 K/mcL (0.6-4.6); Lymphocytes % 14.1 %; Mean Corpuscular HGB Conc 33.2 g/dL (31.6-35.5); Mean Corpuscular Hemoglobin 31.5 pg (28.0-33.3); Mean Corpuscular Volume 94.9 fL (83.0-100.0); Mean Platelet Volume 12.3 fL (9.4-12.4); Monocytes # 0.2 K/mcL (0.0-1.3); Monocytes % 2.5 %; Neutrophils # 7.8 K/mcL (1.6-8.9); Platelet Count 170 K/mcL (140-400); Red Blood Count 3.11 M/mcL (3.82-4.97); Red Cell Distribution Width 14.9 % (11.5-14.5); Segmented Neutrophils % 81.9 %; White Blood Count 9.5 K/mcL (4.3-11.1)
--- NOTE | 2019-02-14 08:39 | Acute Care Surgery Event Note ---
Date of Encounter: 02/14/19 Time of Encounter: 08:37 Surgical d/c instructions placed. Will defer medications for d/c to primary team. Surgical f/u appt made and placed in d/c plan.
[2019-02-14] MEDS ORDERED: Prenatal Vit/FA 1 EACH TABLET PO SCH (09:00)
[2019-02-14 09:05] VITALS: BP 119/74
--- NOTE | 2019-02-14 09:21 | OB/GYN Progress Note ---
Date of Encounter: 02/14/19 Time of Encounter: : - Assessment and Plan (1) Status post cholecystectomy Current Visit: Yes Status: Acute Tolerating diet, incisions dressed. (2) Spontaneous vaginal delivery Current Visit: Yes Status: Acute Stable PPD#1 and POD, Continue current management anticipate discharge tomorrow. Subjective - Subjective Patient reports: appetite normal, voiding normally, pain well controlled : doing well Objective - Latest Vital Signs Latest vital signs: Vital Signs Temp Pulse Resp BP Pulse Ox 02/14/19 08:50 97.7 F 67 16 119/74 98 02/14/19 08:00 97.7 F 76 16 112/62 98 02/14/19 06:42 97.6 F 52 16 102/63 97 02/14/19 05:40 97.3 F L 55 16 103/58 99 02/14/19 05:00 97.3 F L 56 18 117/78 99 02/14/19 04:41 97.8 F 55 12 122/79 96 02/14/19 04:31 66 12 124/76 95 02/14/19 04:21 98.1 F 60 10 130/72 96 02/14/19 04:11 93 14 144/104 97 02/14/19 04:01 69 16 128/81 98 02/14/19 03:51 98.0 F 75 12 138/98 98 02/14/19 03:41 64 14 119/78 98 02/14/19 03:31 67 14 133/82 96 02/14/19 03:21 98.5 F 63 18 119/85 96 02/14/19 01:55 98.6 F 70 14 102/62 97 02/13/19 19:50 98.1 F 67 16 117/71 100 02/13/19 16:13 97.8 F 60 16 109/80 02/13/19 09:30 97.5 F L 62 14 120/73 99 Intake and Output 02/13/19 02/14/19 02/14/19 23:59 07:59 15:59 Output Total Balance - -10 Output: Estimated Blood Loss - Exam Lungs: bilateral: normal Chest: Normal S1, Normal S2 Extremities: Present: normal Abdomen: Present: soft Uterus: Present: firm Uterus Position: At Umbilicus Comments: incisions dressed with bandaids. tolerates diet - Labs Labs: Laboratory Results - last 24 hr 02/13/19 02/13/19 02/14/19 11:48 11:48 06:47 WBC 10.8 9.5 RBC 3.26 L 3.11 L Hgb 10.1 L 9.8 L Hct 29.8 L 29.5 L MCV 91.4 94.9 MCH 31.0 31.5 MCHC 33.9 33.2 RDW 14.2 14.9 H Plt Count 181 170 MPV 12.8 H 12.3 Immature Gran % 0.4 0.4 Seg Neutrophils % 69.7 81.9 Lymphocytes % 21.7 14.1 Monocytes % 6.3 2.5 Eosinophils % 1.4 0.7 Basophils % 0.5 0.4 Neutrophils # 7.6 7.8 Lymphocytes # 2.4 1.3 Monocytes # 0.7 0.2 Eosinophils # 0.2 0.1 Basophils # 0.1 0.0 Sodium 134 L Potassium 3.2 L Chloride 106 Carbon Dioxide 26 BUN 12 Creatinine 0.72 Est GFR ( Amer) > 60 Est GFR (Non-Af Amer) > 60 BUN/Creatinine Ratio 17 Glucose 92 Calculated Osmolality 277 L Calcium 9.3 Total Bilirubin 0.3 AST 20 ALT 28 Alkaline Phosphatase 141 H Serum Total Protein 5.8 L Albumin 2.9 L Globulin 2.9 Albumin/Globulin Ratio 1.0 L
--- NOTE | 2019-02-14 13:21 | Discharge Summary ---
Date of Encounter: 02/14/19 Time of Encounter: 13:18 - Discharge Diagnosis (1) Status post cholecystectomy Priority: Primary Status: Acute Comments: Stable and appropriate for discharge by surgical team (2) Spontaneous vaginal delivery Priority: Primary Status: Acute Comments: Stable, meeting all PP milestones, pain well managed, desires discharge - Discharge Medications Prescriptions: New Ferrous Sulfate 325 mg PO DAILY #60 tablet Ibuprofen [Motrin] 800 mg PO Q6H PRN #60 tablet PRN Reason: Cramping OxyCODONE/APAP 5/325 [Percocet 5/325 MG] 1 each PO Q4H PRN 5 Days #20 tablet PRN Reason: Pain Acetaminophen [Tylenol] 650 mg PO Q6H PRN tablet PRN Reason: Mild Pain Benzocaine/Menthol Bishop [Dermoplast Bishop] 1 appl TP QID PRN aerosol PRN Reason: See Comments Docusate [Colace] 100 mg PO BID #30 capsule Lanolin [Lansinoh] 1 appl TP Q4HR PRN oint...g. PRN Reason: Home Medications: Acetaminophen [Tylenol] 650 mg PO Q6H PRN tablet 02/14/19 [Rx] Benzocaine/Menthol Bishop [Dermoplast Bishop] 1 appl TP QID PRN aerosol 02/14/19 [Rx] Docusate [Colace] 100 mg PO BID #30 capsule 02/14/19 [Rx] Ferrous Sulfate 325 mg PO DAILY #60 tablet 02/14/19 [Rx] Ibuprofen [Motrin] 800 mg PO Q6H PRN #60 tablet 02/14/19 [Rx] Lanolin [Lansinoh] 1 appl TP Q4HR PRN oint...g. 02/14/19 [Rx] OxyCODONE/APAP 5/325 [Percocet 5/325 MG] 1 each PO Q4H PRN 5 Days #20 tablet 02/14/19 [Rx] Allergies/Adverse Reactions: Allergy/AdvReac Type Severity Reaction Status Date / Time No Known Allergies Allergy Verified 12/07/18 02:52 Data Procedures and tests throughout hospitalization: Laboratory Tests 02/13/19 02/13/19 02/13/19 02:45 02:45 05:20 WBC 9.9 RBC 3.47 L Hgb 10.6 L Hct 31.3 L MCV 90.2 MCH 30.5 MCHC 33.9 RDW 14.2 Plt Count 191 MPV 12.8 H Immature Gran % 0.3 Seg Neutrophils % 63.8 Lymphocytes % 27.6 Monocytes % 6.7 Eosinophils % 1.3 Basophils % 0.3 Neutrophils # 6.3 Lymphocytes # 2.7 Monocytes # 0.7 Eosinophils # 0.1 Basophils # 0.0 Sodium Potassium Chloride Carbon Dioxide BUN Creatinine Est GFR ( Amer) Est GFR (Non-Af Amer) BUN/Creatinine Ratio Glucose Calculated Osmolality Calcium Total Bilirubin AST ALT Alkaline Phosphatase Serum Total Protein Albumin Globulin Albumin/Globulin Ratio Urine Opiates Screen Negative Ur Buprenorphine Scrn Negative Ur Barbiturates Screen Negative Ur Phencyclidine Scrn Negative Ur Amphetamines Screen Negative U Benzodiazepines Scrn Negative Urine Cocaine Screen Negative U Marijuana (THC) Screen Negative Ur Drug Screen Interp See Below Baby's Blood Type A RH NEGATIVE Mother's Blood Type A RH NEGATIVE Rhogam Indicated NO 02/13/19 02/13/19 02/14/19 11:48 11:48 06:47 WBC 10.8 9.5 RBC 3.26 L 3.11 L Hgb 10.1 L 9.8 L Hct 29.8 L 29.5 L MCV 91.4 94.9 MCH 31.0 31.5 MCHC 33.9 33.2 RDW 14.2 14.9 H Plt Count 181 170 MPV 12.8 H 12.3 Immature Gran % 0.4 0.4 Seg Neutrophils % 69.7 81.9 Lymphocytes % 21.7 14.1 Monocytes % 6.3 2.5 Eosinophils % 1.4 0.7 Basophils % 0.5 0.4 Neutrophils # 7.6 7.8 Lymphocytes # 2.4 1.3 Monocytes # 0.7 0.2 Eosinophils # 0.2 0.1 Basophils # 0.1 0.0 Sodium 134 L Potassium 3.2 L Chloride 106 Carbon Dioxide 26 BUN 12 Creatinine 0.72 Est GFR ( Amer) > 60 Est GFR (Non-Af Amer) > 60 BUN/Creatinine Ratio 17 Glucose 92 Calculated Osmolality 277 L Calcium 9.3 Total Bilirubin 0.3 AST 20 ALT 28 Alkaline Phosphatase 141 H Serum Total Protein 5.8 L Albumin 2.9 L Globulin 2.9 Albumin/Globulin Ratio 1.0 L Urine Opiates Screen Ur Buprenorphine Scrn Ur Barbiturates Screen Ur Phencyclidine Scrn Ur Amphetamines Screen U Benzodiazepines Scrn Urine Cocaine Screen U Marijuana (THC) Screen Ur Drug Screen Interp Baby's Blood Type Mother's Blood Type Rhogam Indicated Labs on day of discharge: Labs from last 24 hours 02/14/19 06:47 WBC 9.5 RBC 3.11 L Hgb 9.8 L Hct 29.5 L MCV 94.9 MCH 31.5 MCHC 33.2 RDW 14.9 H Plt Count 170 MPV 12.3 Immature Gran % 0.4 Seg Neutrophils % 81.9 Lymphocytes % 14.1 Monocytes % 2.5 Eosinophils % 0.7 Basophils % 0.4 Neutrophils # 7.8 Lymphocytes # 1.3 Monocytes # 0.2 Eosinophils # 0.1 Basophils # 0.0 - Impressions ITS Impressions Gallbladder Ultrasound 02/13/19 13:35 IMPRESSION: Large calculus in the neck of the gallbladder without sonographic findings of acute cholecystitis. Similar findings previously present. D/ / Arcadio Nunez MD / Arcadio Nunez MD Interpreting Provider: Arcadio Nunez MD Date of admission: 02/13/19 02:23 Primary care physician: Wilian Berkowitz CNP Consults: 02/13/19 08:19 Consult to Machine Puller [CONS] Routine Comment: Vaginal delivery, consult needed 02/13/19 10:13 Consult to Surgery [CONS] Stat Consulting Provider: [facility] Reason for Consult: H/O acute cholecystitis in Time Notified: 10:14 Call Completed: Yes 02/13/19 12:21 Consult to Foot And Ankle Surgeon (W&C) [CONS] Routine Reason For Exam: Reason for SW Consult: cord stat testing, tearful. emotional highs and lows witnessed. history of depression. Discharging clinician: Nicci Ji Anticipated date of discharge: 02/14/19 - Patient Status Disposition: Home, Self-Care Condition: Good Functional capacity at discharge: independent ambulation Overall status at discharge: patient is progressing back to baseline - Discharge Instructions Instructions: Laparoscopic Cholecystectomy (DC) Follow Up With: Alyson Vaca CNP [Advanced Practice Nurse] - 02/22/19 2:15 pm Wilian Berkowitz CNP [Primary Care Provider] - Additional Instructions: General Surgical Discharge Instructions 1. No pushing, pulling, or lifting greater than 15 lbs for 4 weeks. 2. You may remove your dressings and shower beginning tomorrow, but no tub baths, soaking, or swimming for 2 weeks. 3. No driving for one weeks unless otherwise specified and then you may resume driving when you are off narcotics and are safe to react in a car. 4. Apply ice 20 minutes every hour that you are awake to your abdomen and Take ibuprofen every 8 hours for discomfort. If this does not relieve discomfort, you may take the as needed Percocet. Eat a small snack with pain medication as this will help reduce the risk of nausea. Take narcotics as directed. Do not take more narcotics then directed and do not share your narcotics with any other person. Do not drink alcohol while on narcotics. You can take the Zofran/ ondansetron if needed for nausea or with a dose of narcotics to prevent nausea. 5. Take stool softeners (Colace) or a water based laxative (Miralax) while taking narcotics. You may hold for loose stools. 6. Report any fevers greater than 100.5F, increase abdominal discomfort, drainage that looks like pus, increased redness or pain at the surgical site, or any vomiting. 7. Report any pain in the calves, shortness of breath, or rapid heartbeat. 8. Follow-up in the office as directed. 9. If you were prescribed antibiotics, do not stop them without talking to your provider. - Diet and Activity Activity: resume usual activities as tolerated Diet: low fat, low cholesterol Hospital Course Reason for admission: active labor Delivery: Episiotomy: none Laceration: none Other procedures: other (cholecystectomy) complications: none Discharge diagnosis: IUP at term delivered [place] baby: male Hospital course: Delivery - Delivery Date: 02/13/19 Provider: Toma Mondragon Intrapartum events: none Delivery induction: none Delivery augmentation: rupture of membranes (at complete dilation) Delivery monitor: external FHT, external uterine Anesthesia: none Quantitated Blood Loss: 100 - Infant (s) Infant A Infant Delivery Date: 02/13/19 Infant Delivery Time: 04:49 Presentation: vertex Position: OA Route of delivery: Gender: Male Viability: Viable Pounds: 6 Ounces: 9 Weight Gram: 2.985 kg at 1 minute: 9 at 5 mins: 9 Shoulder Dystocia: not encountered Specimens collected: cord blood Placenta: spontaneous Cord: nuchal cord, 3 umbilical vessels, delivered through nuchal - Repair Episiotomy: none Laceration Description: None - Complications Delivery complications: none Delivery comments: Pt presented in active labor and progressed rapidly to for viable male "Guillermo" weighing [id number] with apgars 9 at one minute and 9 at five minutes.After a 60 second delay the cord was clamped and cut and the placenta delivered spontaneous and intact. EBL 100ml. No lacerations. Mother and baby stable in kangaroo care following . - Disposition Mom disposition: stable in PP and appropriate for discharge. OAARS reviewed Time Attestation: Total time spent providing and/or coordinating discharge services: Time Spent: Less than 30 minutes Exam - Constitutional Vitals: Temp Pulse Resp BP Pulse Ox 97.7 F 67 16 119/74 98 02/14/19 08:50 02/14/19 08:50 02/14/19 08:50 02/14/19 08:50 02/14/19 08:50 General appearance IM: A&O X 3 - Respiratory Respiratory exam: Present: CTAB - Cardiovascular Cardiovascular exam IM: Present: RRR - GI/Abdominal GI/Abdominal exam IM: soft Incision: intact - Uterine Tone: Firm Uterus Position: At Umbilicus - Extremities Exam Extremities exam IM: Present: normal capillary refill, normal inspection - Neurological Exam Neurological exam: normal gait, oriented X3 - Psychiatric Additional comments: reports good mood
[2019-02-14] MEDS ORDERED: FLU Vac QV 19-20 (6Month+)/PF 0.5 ML SYRINGE IM ONE (13:56)
== END 2019-02-14 15:57 | disposition home or self-care (01) | DRG 560 ==
LOC: 1NENULAB → OBSVTOIN 02:23 → 1NENUOBS 08:08
PROVIDERS: ADMIT Registered Nurse; ATTEND Registered Nurse